=== PATIENT | female | born 1990 | race Caucasian/White ===

== ENCOUNTER 2018-08-09 05:47 | Observation (INO) | payer OTHER ==
[~2018-08-09] VITALS: Ht 165.1 cm; Wt 112.0 kg
[~2018-08-09 05:47] MED LIST: FLUT9.9S NS; MECL25TA3 PO; PRED20TA PO
[2018-08-09] MEDS ORDERED: IPRATRPIUM/ALBUTEROL 0.5/2.5MG 3 ML NEBU. NEB ONE (06:15)
[2018-08-09] MEDS ORDERED: IV NORMAL SALINE 1,000ML 1,000 ML IV ONE (06:15)
--- NOTE | 2018-08-09 06:26 | PHYS DOC ---
Past History Past Medical History: Other Past Surgical History: Appendectomy, , Tubal ligation, Other Smoking: Non-smoker Alcohol Use: None Drug Use: None Adult General Chief Complaint Chief Complaint: COUGH HPI HPI 27-year-old female presenting the emergency department with cough associated with shortness of breath over the past 2 days. She also describes a sharp pain in the chest. It is mild to moderate, nonradiating, intermittent and without alleviating factors. Cough is nonproductive. She denies any fevers at home. She denies unilateral leg swelling hemoptysis personal history of blood clotting disorders or family history of blood clotting disorders. She denies having diabetes high blood pressure high cholesterol family history of heart disease at her age. She sudden cardiac in the family at a young age. Past medical history: Chronic back pain Surgical history appendectomy, , lower back surgery, tubal ligation. Review of systems is negative for neck pain or neck stiffness. She does have a mild headache. She denies any numbness weakness or tingling. Positive for cough. Negative for abdominal pain or vomiting. All other review of systems is negative unless otherwise noted in history of present illness. ED course: 27-year-old female presenting with a nonproductive cough. On arrival , she is tachypneic and tachycardic but well-appearing. She is coughing the examination room with a nonproductive cough during my examination. She has wheezing bilaterally. Abdomen is soft and nontender. Otherwise 2 second cap refill. The remainder the examination is unremarkable. Patient was given IV fluids oral Tylenol for her headache and prednisone her wheezing. Chest x-ray obtained along with EKG and blood work. Chest x-ray shows possible vascular congestion, CT angiogram negative for pulmonary embolism. CT angiogram shows pulmonary edema versus pneumonia. Clinically the patient presents more consistent with pneumonia. EKG obtained and reviewed by myself shows sinus rhythm with a tachycardic rate. Patient has T-wave inversion in lead 3 along with T-wave flattening in aVF. Mild ST depression in the inferior lead. I believe the patient will need to be admitted for serial EKGs and blood testing along with investigation as to the etiology of the patient's pulmonary edema seen on CT scan. I spoke with Dr. Lainez who accepts the patient for admission. IV antibiotics given. IV fluids given. Basic bridge orders placed. Consult cardiology placed. Review of Systems Review of Systems SEE ABOVE. Current Medications Current Medications Current Medications Medications (Trade) Dose Ordered Sig/Tommy Start Time Stop Time Status Last Admin Dose Admin Acetaminophen (Tylenol) 650 mg 1X ONCE 08/09/18 06:30 08/09/18 06:31 UNV Albuterol/ Ipratropium (Duoneb) 3 ml 1X ONCE 08/09/18 06:15 08/09/18 06:18 DC Sodium Chloride 1,000 ml @ 1,000 mls/hr 1X ONCE 08/09/18 06:15 08/09/18 07:14 Allergies Allergies Allergies Coded Allergies Type Severity Reaction Last Updated Verified NSAIDS (Non-Steroidal Anti-Inflamma Adverse Reaction Unknown 07/30/14 Yes Physical Exam Physical Exam Constitutional: Well developed, well nourished, no acute distress, non-toxic appearance. [] HENT: Normocephalic, atraumatic, bilateral external ears normal, oropharynx moist, no oral exudates, nose normal. [] Eyes: PERRLA, EOMI, conjunctiva normal, no discharge. [] Neck: Normal range of motion, no tenderness, supple, no stridor. [] Cardiovascular:tachy rate with regular rhythm, no murmur [] Lungs & Thorax: above Abdomen: Bowel sounds normal, soft, no tenderness, no masses, no pulsatile masses. [] Skin: Warm, dry, no erythema, no rash. [] Back: No tenderness, no CVA tenderness. [] Extremities: No tenderness, no cyanosis, no clubbing, ROM intact, no edema. [] Neurologic: Alert and oriented X 3, normal motor function, normal sensory function, no focal deficits noted. [] Psychologic: Affect normal, judgement normal, mood normal. [] Current Patient Data Vital Signs Vital Signs Date Time Temp Pulse Resp B/P (MAP) Pulse Ox O2 Delivery O2 Flow Rate FiO2 08/09/18 05:51 97.7 112 32 98 Room Air EKG EKG [] Radiology/Procedures Radiology/Procedures [] Course & Med Decision Making Course & Med Decision Making Pertinent Labs and Imaging studies reviewed. (See chart for details) [] Dragon Disclaimer Dragon Disclaimer This electronic medical record was generated, in whole or in part, using a voice recognition dictation system. Departure Departure: Impression: Primary Impression: Cough Additional Impressions: PNA (pneumonia) Abnormal EKG Pulmonary edema Disposition: 09 ADMITTED INPATIENT Admitting Physician: Other (JONES) Condition: STABLE Referrals: PATRICIA MUNGUIA MD (PCP) Problem Qualifiers ADAN VARMA MD Aug 09, 2018 06:26
[2018-08-09] MEDS ORDERED: ACETAMINOPHEN 325 MG TABLET PO ONE (06:30)
[2018-08-09] MEDS ORDERED: predniSONE 10 MG TABLET PO ONE (06:30)
[2018-08-09 06:42] LABS: BASO % 0 % (0-3); EOS # 0.2 x10^3/uL (0.0-0.7); EOS % 2 % (0-3); HEMATOCRIT 38.9 % (36.0-47.0); HEMOGLOBIN 12.8 g/dL (12.0-15.5); LYMPH % 9 % (24-48); MEAN CORPUSCULAR HEMOGLOBIN 26 pg (25-35); MEAN CORPUSCULAR HGB CONC 33 g/dL (31-37); MEAN CORPUSCULAR VOLUME 79 fL (79-100); MONO # 0.8 x10^3/uL (0.0-1.1); MONO % 7 % (0-9); NEUT # 9.2 x10^3uL (1.8-7.7); NEUT % 82 % (31-73); PLATELET COUNT 295 x10^3/uL (140-400); RED BLOOD COUNT 4.96 x10^6/uL (3.50-5.40); RED CELL DISTRIBUTION WIDTH 15.3 % (11.5-14.5); WHITE BLOOD COUNT 11.2 x10^3/uL (4.0-11.0)
--- NOTE | 2018-08-09 06:49 | EKG ---
[address] [address] Test Date: 2018-08-09 Test Time: 06:45:11 Pat Name: MOODY PUGH Department: Room: Gender: F Communications Agent: : 1990 Requested By: ADAN VARMA Order Number: [id number] Reading MD: Julio Cesar Schaffer MD Measurements Intervals [place] Rate: 106 P: 24 RI: 148 QRS: -8 QRSD: 90 T: -5 QT: 330 QTc: 440 Interpretive Statements SINUS TACHYCARDIA NON-SPECIFIC ST/T CHANGES Electronically Signed On 08-10-2018 13:45:45 CDT by Julio Cesar Schaffer MD
[2018-08-09 06:55] LABS: ALBUMIN 2.9 g/dL (3.4-5.0); CALCIUM 8.7 mg/dL (8.5-10.1); CREATININE 0.6 mg/dL (0.6-1.0); DIRECT BILIRUBIN 0.1 mg/dL (0.0-0.2); GFR 118.2; POTASSIUM 3.9 mmol/L (3.5-5.1); TOTAL BILIRUBIN 0.4 mg/dL (0.2-1.0); TOTAL PROTEIN 6.5 g/dL (6.4-8.2)
[2018-08-09] MEDS ORDERED: IOHEXOL 300 MG/ML 75 ML VIAL. IV ONE (07:30)
--- NOTE | 2018-08-09 08:18 | RAD ---
CTA of the chest with contrast, 08/09/2018: HISTORY: Shortness of breath, cough, elevated d-dimer Multidetector CT imaging was performed following an IV bolus injection of iodinated contrast material. Multiplanar reconstructions were produced including coronal MIP images No filling defects are seen in the central pulmonary arteries to suggest pulmonary emboli. The heart is mildly enlarged. The thoracic aorta is of normal caliber. There is minimal right paratracheal and subcarinal adenopathy. There is moderate interlobular septal thickening in both lungs. There are scattered hazy groundglass opacities, probably accentuated by the expiratory technique. No significant pleural fluid is evident. The upper ends of spinal fixation rods and associated screws are noted in the lower thoracic and upper lumbar spine. IMPRESSION: 1. No CT evidence of central pulmonary emboli. 2. Mild cardiomegaly. 3. Interlobular septal thickening and mild patchy groundglass opacities in both lungs suggesting mild pulmonary edema. Pneumonia is less likely. 4. Minimal mediastinal adenopathy. PQRS Compliance Statement: One or more of the following individualized dose reduction techniques were utilized for this examination: 1. Automated exposure control 2. Adjustment of the mA and/or kV according to patient size 3. Use of iterative reconstruction technique Electronically signed by: Clement Langley MD (08/09/2018 8:14 AM) [facility]
--- NOTE | 2018-08-09 08:20 | RAD ---
Portable chest, 08/09/2018: HISTORY: Cough The heart size is within normal limits for the portable technique. The pulmonary vascularity are at the upper limits of normal. No pulmonary consolidation is seen. There is no evidence of pleural fluid. Surgical rods and screws are present at the thoracolumbar spine level. IMPRESSION: Borderline vascular congestion. Electronically signed by: Clement Langley MD (08/09/2018 8:17 AM) [facility]
[2018-08-09] MEDS ORDERED: IV NORMAL SALINE 1,000ML 1,000 ML IV SCH (08:45)
[2018-08-09] MEDS ORDERED: AZITHROMYCIN 250 MG TABLET. PO ONE (09:00)
[2018-08-09] MEDS ORDERED: cefTRIAXone IV Push 1 GM VIAL. IVP ONE (09:00)
--- NOTE | 2018-08-09 10:11 | EKG ---
[address] [address] Test Date: 2018-08-09 Test Time: 09:01:07 Pat Name: MOODY PUGH Department: Room: Gender: F Scullion Chief: : 1990 Requested By: ADAN VARMA Order Number: [id number] Reading MD: Julio Cesar Schaffer MD Measurements Intervals [place] Rate: 105 P: 28 DC: 152 QRS: -8 QRSD: 92 T: 2 QT: 344 QTc: 459 Interpretive Statements SINUS TACHYCARDIA Electronically Signed On 08-10-2018 13:46:30 CDT by Julio Cesar Schaffer MD
[2018-08-09] MEDS: ONDANSETRON PF 4 MG/2 ML VIAL. IV PRN ×2 (10:12→10:18)
--- NOTE | 2018-08-09 11:28 | NUR ---
NSG NOTE; ADMISSION ADMIT TO ROOM 113 AT 1125 FROM ED VIA CART ACCOMP BY EMS PERSONNEL AND FIANCE. C/O COUGH AND SOA X 2 DAYS
[2018-08-09 11:44] VITALS: BP 121/78
[2018-08-09] MEDS ORDERED: ESCITALOPRAM OX10 MG PO (11:49)
--- NOTE | 2018-08-09 12:25 | NUR ---
NSG NOTE; DR WONG CONSULT CALLED TO [place] AT OFFICE [employer]IOR [employer]OPER LINE AT [id number]
[2018-08-09 15:31] VITALS: BP 120/62
--- NOTE | 2018-08-09 15:46 | PDOC1 ---
History of Present Illness History of Present Illness 27-year-old female presented to the emergency department with cough associated with shortness of breath over the past 2 days. She also described a sharp pain in the chest. It was mild to moderate, nonradiating, intermittent and without alleviating factors. Cough nonproductive. She denied any fevers at home. She denied unilateral leg swelling hemoptysis personal history of blood clotting disorders or family history of blood clotting disorders. She denied having diabetes high blood pressure high cholesterol family history of heart disease at her age. She denied sudden cardiac in the family at a young age. On arrival, she was tachypneic and tachycardic but well-appearing. She had nonproductive cough. She had wheezing bilaterally. Patient was given IV fluids oral Tylenol for her headache and prednisone her wheezing. Chest x-ray obtained along with EKG and blood work. Chest x-ray showed possible vascular congestion, CT angiogram negative for pulmonary embolism. CT angiogram shows pulmonary edema versus pneumonia. Clinically the patient presented more consistent with pneumonia. EKG reportedly sinus rhythm with a tachycardic rate, T-wave inversion in lead 3 along with T-wave flattening in aVF. Mild ST depression in the inferior lead. Patient was admitted for blood testing along with investigation as to the etiology of the patient's pulmonary edema seen on CT scan. Cardiology was consulted, echocardiogram was unremarkable and the patient' s pain symptoms determined to be pleuritic in nature no further cardiac workup indicated. Patient to be discharged home with oral antibiotics and close PCP follow-up. Chief Complaint: COUGH Allergies: Coded Allergies: NSAIDS (Non-Steroidal Anti-Inflamma (Verified Adverse Reaction, Unknown, ) black tarry stools and upset stomache Past Medical History Musculoskeletal: low back pain (Chronic) Past Surgical History: Appendectomy, , Other (back, tubal ligation) Family History: CAD Past Social History Smoke: No Alcohol: none Drugs: None Lives: with Family Review of Systems Review Of Systems Fourteen system , review of systems has been reviewed. See HPI for pertinent positives and negative responses, other valencia all other systems are negative, non pertinent or non contributory Constitutional: No: Fever, Chills, Sweats Eyes: No: Blurry vision, Eye Pain ENT: No: Ear discharge, Mouth pain Respiratory: YES: Cough, Pleuritic Pain; No: Orthopnea, SOB with excertion Cardiovascular: yes: Chest Pain; No: Palpitations, Paroxysmal Noc. Dyspnea, Edema Gastrointestinal: No: Nausea, Vomiting, Constipation Musculoskeletal: No: Gait Disturbance, Joint Swelling SKIN: YES: Warm, Dry Neurological: No: Behavorial Changes, Headaches, Memory Loss Medications Current Medications Sodium Chloride 1,000 ml @ 1,000 mls/hr 1X ONCE IV Last administered on at 06:36; Start 08/09/18 at 06:15; Stop 08/09/18 at 07:14; Status DC Albuterol/ Ipratropium (Duoneb) 3 ml 1X ONCE NEB Last administered on at 06:38; Start 08/09/18 at 06:15; Stop 08/09/18 at 06:18; Status DC Acetaminophen (Tylenol) 650 mg 1X ONCE PO Last administered on 08/09/18at 06:38 ; Start 08/09/18 at 06:30; Stop 08/09/18 at 06:31; Status DC Prednisone (Prednisone) 50 mg 1X ONCE PO Last administered on 08/09/18at 06:39 ; Start 08/09/18 at 06:30; Stop 08/09/18 at 06:31; Status DC Iohexol (Omnipaque 300 Mg/ml) 75 ml 1X ONCE IV Last administered on 08/09/18at 07:55; Start 08/09/18 at 07:30; Stop 08/09/18 at 07:37; Status DC Ondansetron HCl (Zofran) 4 mg PRN Q4HRS PRN IV NAUSEA/VOMITING Last administered on 08/09/18at 10:18; Start 08/09/18 at 08:45; Stop 08/10/18 at 08:44 Sodium Chloride 1,000 ml @ 100 mls/hr Q10H IV Last administered on 08/09/18at 10:11; Start 08/09/18 at 08:45; Stop 08/10/18 at 08:44 Azithromycin (Zithromax) 500 mg 1X ONCE PO Last administered on 08/09/18at 10: 12; Start 08/09/18 at 09:00; Stop 08/09/18 at 09:01; Status DC Ceftriaxone Sodium 1 gm/ Sodium Chloride 50 ml @ 100 mls/hr 1X ONCE IV ; Start 08/09/18 at 09:00; Stop 08/09/18 at 09:00; Status DC Ceftriaxone Sodium (Rocephin) 1 gm 1X ONCE IVP Last administered on 08/09/18at 10:10; Start 08/09/18 at 09:00; Stop 08/09/18 at 09:01; Status DC Active Scripts Active Reported Escitalopram Oxalate 10 Mg Tablet 2 Tab PO DAILY Exam Vital Signs Vital Signs Date Time Temp Pulse Resp B/P (MAP) Pulse Ox O2 Delivery O2 Flow Rate FiO2 08/09/18 15:31 98.9 107 20 120/62 (81) 95 Room Air General Appearance: Alert, Oriented X3, No acute distress HEENT: Atraumatic, PERRLA, EOMI, Mucous membr. moist/pink Respiratory: Clear to auscultation, Normal air movement Heart: Normal S1, Normal S2, No murmurs Abdominal: Normal bowel sounds, Soft Extremities: No clubbing, No cyanosis Skin: No rashes, No breakdown Neuro: Normal gait, Normal speech, Normal tone, Sensation intact, Cranial nerves 3-12 NL Psych/Mental Status: Mental status NL, Mood NL COURSE Allergies Coded Allergies Type Severity Reaction Last Updated Verified NSAIDS (Non-Steroidal Anti-Inflamma Adverse Reaction Unknown 08/09/18 Yes Laboratory Tests Test 08/09/18 06:25 White Blood Count 11.2 x10^3/uL (4.0-11.0) Red Blood Count 4.96 x10^6/uL (3.50-5.40) Hemoglobin 12.8 g/dL (12.0-15.5) Hematocrit 38.9 % (36.0-47.0) Mean Corpuscular Volume 79 fL (79-100) Mean Corpuscular Hemoglobin 26 pg (25-35) Mean Corpuscular Hemoglobin Concent 33 g/dL (31-37) Red Cell Distribution Width 15.3 % (11.5-14.5) Platelet Count 295 x10^3/uL (140-400) Neutrophils (%) (Auto) 82 % (31-73) Lymphocytes (%) (Auto) 9 % (24-48) Monocytes (%) (Auto) 7 % (0-9) Eosinophils (%) (Auto) 2 % (0-3) Basophils (%) (Auto) 0 % (0-3) Neutrophils # (Auto) 9.2 x10^3uL (1.8-7.7) Lymphocytes # (Auto) 1.0 x10^3/uL (1.0-4.8) Monocytes # (Auto) 0.8 x10^3/uL (0.0-1.1) Eosinophils # (Auto) 0.2 x10^3/uL (0.0-0.7) Basophils # (Auto) 0.0 x10^3/uL (0.0-0.2) D-Dimer (Gayathri) 2.22 mg/L (0.00-0.50) Sodium Level 137 mmol/L (136-145) Potassium Level 3.9 mmol/L (3.5-5.1) Chloride Level 105 mmol/L (98-107) Carbon Dioxide Level 25 mmol/L (21-32) Anion Gap 7 (6-14) Blood Urea Nitrogen 7 mg/dL (7-20) Creatinine 0.6 mg/dL (0.6-1.0) Estimated GFR (Cockcroft-Gault) 118.2 Glucose Level 91 mg/dL (70-99) Calcium Level 8.7 mg/dL (8.5-10.1) Total Bilirubin 0.4 mg/dL (0.2-1.0) Direct Bilirubin 0.1 mg/dL (0.0-0.2) Aspartate Amino Transf (AST/SGOT) 10 U/L (15-37) Alanine Aminotransferase (ALT/SGPT) 22 U/L (14-59) Alkaline Phosphatase 96 U/L (46-116) Troponin I Quantitative < 0.017 ng/mL (0-0.055) Total Protein 6.5 g/dL (6.4-8.2) Albumin 2.9 g/dL (3.4-5.0) Lipase 94 U/L (73-393) Current Medications Medications (Trade) Dose Ordered Sig/Tommy Route PRN Reason Start Time Stop Time Status Last Admin Dose Admin Sodium Chloride 1,000 ml @ 1,000 mls/hr 1X ONCE IV 08/09/18 06:15 08/09/18 07:14 DC 08/09/18 06:36 Albuterol/ Ipratropium (Duoneb) 3 ml 1X ONCE NEB 08/09/18 06:15 08/09/18 06:18 DC 9/10/18 06:38 Acetaminophen (Tylenol) 650 mg 1X ONCE PO 08/09/18 06:30 08/09/18 06:31 DC 08/09/18 06:38 Prednisone (Prednisone) 50 mg 1X ONCE PO 08/09/18 06:30 08/09/18 06:31 DC 08/09/18 06:39 Iohexol (Omnipaque 300 Mg/ml) 75 ml 1X ONCE IV 08/09/18 07:30 08/09/18 07:37 DC 08/09/18 07:55 Ondansetron HCl (Zofran) 4 mg PRN Q4HRS PRN IV NAUSEA/VOMITING 08/09/18 08:45 08/10/18 08:44 08/09/18 10:18 Sodium Chloride 1,000 ml @ 100 mls/hr Q10H IV 08/09/18 08:45 08/10/18 08:44 08/09/18 10:11 Azithromycin (Zithromax) 500 mg 1X ONCE PO 08/09/18 09:00 08/09/18 09:01 DC 08/09/18 10:12 Ceftriaxone Sodium 1 gm/ Sodium Chloride 50 ml @ 100 mls/hr 1X ONCE IV 08/09/18 09:00 08/09/18 09:00 DC Ceftriaxone Sodium (Rocephin) 1 gm 1X ONCE IVP 08/09/18 09:00 08/09/18 09:01 DC 08/09/18 10:10 Orders Procedure Category Date Status Time Basic Metabolic Panel LAB 08/09/18 Complete 06:03 Cbc W Autodiff LAB 08/09/18 Complete 06:03 Hepatic Panel LAB 08/09/18 Complete 06:03 Lipase LAB 08/09/18 Complete 06:03 Troponin I LAB 08/09/18 Complete 06:03 Pulse Oximetry: MANDY 08/09/18 In Process Standing Order 06:14 Bp Monitoring ER 08/09/18 Transmitted 06:03 Saline Lock ER 08/09/18 Transmitted 06:03 Vital Signs ER 08/09/18 Transmitted 06:03 Chest Ap Only RAD 08/09/18 Resulted 06:03 Iv Normal Saline PHA 08/09/18 Complete 1,000ml (Iv Sodium 06:15 Ipratrpium/Albuterol PHA 08/09/18 Complete 0.5/2.5mg (Duoneb) 06:15 Airway Inhalation RT 08/09/18 Complete Treatment 06:03 12 Lead Ekg EKG 08/09/18 Complete 06:18 Acetaminophen PHA 08/09/18 Complete (Tylenol) 06:30 D-Dimer LAB 08/09/18 Complete 06:19 Prednisone PHA 08/09/18 Complete (Prednisone) 06:[address] 08/09/18 Resulted 07:06 Iohexol 300 Mg/Ml PHA 08/09/18 Complete (Omnipaque 300 Mg/Ml) 07:30 Ed Bridge Order ADT 08/09/18 Transmitted 08:38 Code Status CODE 08/09/18 Transmitted 08:38 Vital Signs, Per MANDY 08/09/18 In Process Protocol 08:38 Oxygen MANDY 08/09/18 In Process 08:38 Advance Diet As MANDY 08/09/18 In Process Tolerated 08:38 Up In Chair With MANDY 08/09/18 In Process Assistance 08:38 Fall Precautions MANDY 08/09/18 In Process 08:38 Cbc W Autodiff LAB 08/10/18 Verified 06:00 Basic Metabolic Panel LAB 08/10/18 Verified 06:00 Ondansetron Pf PHA 08/09/18 In Process (Zofran) 08:45 Iv Normal Saline PHA 08/09/18 In Process 1,000ml (Iv Sodium 08:45 Troponin I LAB 08/09/18 Logged 18:00 Troponin I LAB 08/10/18 Verified 00:00 Troponin I LAB 08/10/18 Verified 06:00 Azithromycin PHA 08/09/18 Complete (Zithromax) 09:00 Ceftriaxone Sodium PHA 08/09/18 Complete (Rocephin) 09:00 Consult Physician By CONS 08/09/18 Transmitted Name 08:55 Ceftriaxone Iv Push PHA 08/09/18 Complete (Rocephin) 09:00 12 Lead Ekg EKG 08/09/18 Complete 09:00 Admit Orders ADT 08/09/18 Transmitted Echocardiogram ECHO 08/09/18 Logged 13:13 Vital Signs Date Time Temp Pulse Resp B/P (MAP) Pulse Ox O2 Delivery O2 Flow Rate FiO2 08/09/18 15:31 98.9 107 20 120/62 (81) 95 Room Air ALFONZO GOLDMAN DO Aug 09, 2018 15:46
--- NOTE | 2018-08-09 16:27 | PDOC2 ---
CONSULT Date of Admission DATE: 08/09/18 TIME: 16:27 Reason for Consult: Chest pain Referring Physician: Dr. Lainez Chief Complaint Chest pain Source: Chart review, Patient Problem List Problems Medical Problems: (1) Abnormal EKG Status: Acute (2) Cough Status: Acute (3) PNA (pneumonia) Status: Acute (4) Pulmonary edema Status: Acute History of Present Illness 27-year-old female without any previous cardiac history presented with cough, shortness of breath and sharp retrosternal chest pain for the past 2-3 days. She denied any exertional component to the chest pain. She also denied any orthopnea/PND, palpitations or syncope. Past Medical History Chronic back pain Past Surgical History Appendectomy Tubal ligation section Back surgery Family History Positive for premature coronary artery disease Smoke: No ALCOHOL: none Drugs: None Current Medications Current Medications Sodium Chloride 1,000 ml @ 1,000 mls/hr 1X ONCE IV Last administered on at 06:36; Start 08/09/18 at 06:15; Stop 08/09/18 at 07:14; Status DC Albuterol/ Ipratropium (Duoneb) 3 ml 1X ONCE NEB Last administered on at 06:38; Start 08/09/18 at 06:15; Stop 08/09/18 at 06:18; Status DC Acetaminophen (Tylenol) 650 mg 1X ONCE PO Last administered on 08/09/18at 06:38 ; Start 08/09/18 at 06:30; Stop 08/09/18 at 06:31; Status DC Prednisone (Prednisone) 50 mg 1X ONCE PO Last administered on 08/09/18at 06:39 ; Start 08/09/18 at 06:30; Stop 08/09/18 at 06:31; Status DC Iohexol (Omnipaque 300 Mg/ml) 75 ml 1X ONCE IV Last administered on 08/09/18at 07:55; Start 08/09/18 at 07:30; Stop 08/09/18 at 07:37; Status DC Ondansetron HCl (Zofran) 4 mg PRN Q4HRS PRN IV NAUSEA/VOMITING Last administered on 08/09/18at 10:18; Start 08/09/18 at 08:45; Stop 08/10/18 at 08:44 Sodium Chloride 1,000 ml @ 100 mls/hr Q10H IV Last administered on 08/09/18at 10:11; Start 08/09/18 at 08:45; Stop 08/10/18 at 08:44 Azithromycin (Zithromax) 500 mg 1X ONCE PO Last administered on 08/09/18at 10: 12; Start 08/09/18 at 09:00; Stop 08/09/18 at 09:01; Status DC Ceftriaxone Sodium 1 gm/ Sodium Chloride 50 ml @ 100 mls/hr 1X ONCE IV ; Start 08/09/18 at 09:00; Stop 08/09/18 at 09:00; Status DC Ceftriaxone Sodium (Rocephin) 1 gm 1X ONCE IVP Last administered on 08/09/18at 10:10; Start 08/09/18 at 09:00; Stop 08/09/18 at 09:01; Status DC Active Scripts Active Reported Escitalopram Oxalate 10 Mg Tablet 2 Tab PO DAILY Allergies: Coded Allergies: NSAIDS (Non-Steroidal Anti-Inflamma (Verified Adverse Reaction, Unknown, ) black tarry stools and upset stomache PSYCHOLOGICAL ROS: No: Hallucinations Eyes: No: Loss of vision HEENT: No: Epistaxis Respiratory: YES: Cough, Shortness of breath Cardiovascular: yes: Chest Pain Gastrointestinal: No: Vomiting, Diarrhea Neurological: No: Seizures Skin: No: Rash General: Alert, Oriented X3 HEENT: Atraumatic, PERRLA Lungs: Clear to auscultation Heart: Regular rate Abdomen: Soft, No tenderness Extremities: No edema Psych/Mental Status: Mood NL VITALS Vital Signs Date Time Temp Pulse Resp B/P (MAP) Pulse Ox O2 Delivery O2 Flow Rate FiO2 08/09/18 15:31 98.9 107 20 120/62 (81) 95 Room Air Labs Laboratory Tests Test 08/09/18 06:25 08/09/18 15:52 White Blood Count 11.2 x10^3/uL (4.0-11.0) Red Blood Count 4.96 x10^6/uL (3.50-5.40) Hemoglobin 12.8 g/dL (12.0-15.5) Hematocrit 38.9 % (36.0-47.0) Mean Corpuscular Volume 79 fL (79-100) Mean Corpuscular Hemoglobin 26 pg (25-35) Mean Corpuscular Hemoglobin Concent 33 g/dL (31-37) Red Cell Distribution Width 15.3 % (11.5-14.5) Platelet Count 295 x10^3/uL (140-400) Neutrophils (%) (Auto) 82 % (31-73) Lymphocytes (%) (Auto) 9 % (24-48) Monocytes (%) (Auto) 7 % (0-9) Eosinophils (%) (Auto) 2 % (0-3) Basophils (%) (Auto) 0 % (0-3) Neutrophils # (Auto) 9.2 x10^3uL (1.8-7.7) Lymphocytes # (Auto) 1.0 x10^3/uL (1.0-4.8) Monocytes # (Auto) 0.8 x10^3/uL (0.0-1.1) Eosinophils # (Auto) 0.2 x10^3/uL (0.0-0.7) Basophils # (Auto) 0.0 x10^3/uL (0.0-0.2) D-Dimer (Gayathri) 2.22 mg/L (0.00-0.50) Sodium Level 137 mmol/L (136-145) Potassium Level 3.9 mmol/L (3.5-5.1) Chloride Level 105 mmol/L (98-107) Carbon Dioxide Level 25 mmol/L (21-32) Anion Gap 7 (6-14) Blood Urea Nitrogen 7 mg/dL (7-20) Creatinine 0.6 mg/dL (0.6-1.0) Estimated GFR (Cockcroft-Gault) 118.2 Glucose Level 91 mg/dL (70-99) Calcium Level 8.7 mg/dL (8.5-10.1) Total Bilirubin 0.4 mg/dL (0.2-1.0) Direct Bilirubin 0.1 mg/dL (0.0-0.2) Aspartate Amino Transf (AST/SGOT) 10 U/L (15-37) Alanine Aminotransferase (ALT/SGPT) 22 U/L (14-59) Alkaline Phosphatase 96 U/L (46-116) Troponin I Quantitative < 0.017 ng/mL (0-0.055) < 0.017 ng/mL (0-0.055) Total Protein 6.5 g/dL (6.4-8.2) Albumin 2.9 g/dL (3.4-5.0) Lipase 94 U/L (73-393) Assessment/Plan 1. Chest pain with atypical features appears to be pleuritic in nature. Myocardial infarction has been ruled out. CT chest did not show any acute pulmonary embolism. 2-D echo showed normal LV function without any regional wall motion abnormalities. No further cardiac workup is indicated at this time. 2. Pneumonia: Treat per IM Thank you for your consultation KELSY DASH MD Aug 09, 2018 16:27
--- NOTE | 2018-08-09 16:45 | CARD ---
MR#: [id number] Date of Study: 08/09/2018 Ordering Physician: KELSY DASH, Referring Physician: ALFONZO GOLDMAN, Tech: Lisa Fernandes RDCS APPROVED REPORT EXAM: Two-dimensional and M-mode echocardiogram with Doppler and color Doppler. Other Information Quality : Good INDICATION Abnormal ECG 2D DIMENSIONS RVDd2.4 (2.9-3.5cm)Left Atrium(2D)3.7 (1.6-4.0cm) IVSd1.0 (0.7-1.1cm)Aortic Root(2D)2.6 (2.0-3.7cm) LVDd4.9 (3.9-5.9cm)LVOT Diameter2.1 (1.8-2.4cm) PWd1.0 (0.7-1.1cm)LVDs3.3 (2.5-4.0cm) FS (%) 33.0 %SV68.2 ml LVEF(%)61.4 (>50%) Aortic Valve AoV Peak Gianni.164.6cm/Frances Peak GR.10.8mmHg LVOT Peak Gianni.101.0cm/sAVA (VMAX)2.15cm2 ANTONETTE (VTI)2.20cm2 Mitral Valve MV E Ejyjrkaj11.7cm/sMV DECEL [id number] MV A Jiyplnmf33.4cm/sE/A Ratio0.9 Tricuspid Valve TR P. [id number]/sRAP [id number] TR Peak Gr.[id number] Pulmonary Vein S1 Pyftdsfq86.0cm/sD2 Hvazawnr72.0cm/s LEFT VENTRICLE The left ventricle is normal size. There is normal left ventricular wall thickness. The left ventricu lar systolic function is normal. The Ejection Fraction is 55-60%. There is normal LV segmental wall m otion. The left ventricular diastolic function and filling is normal for age. RIGHT VENTRICLE The right ventricle is normal size. The right ventricular systolic function is normal. ATRIA The left atrium size is normal. The right atrium size is normal. The interatrial septum is intact wit h no evidence for an atrial septal defect or patent foramen ovale as noted on 2-D or Doppler imaging. AORTIC VALVE The aortic valve is normal in structure and function. Doppler and Color Flow revealed no significant aortic regurgitation. There is no significant aortic valvular stenosis. MITRAL VALVE The mitral valve is normal in structure and function. There is no evidence of mitral valve prolapse. There is no mitral valve stenosis. Doppler and Color Flow revealed no mitral valve regurgitation note d. TRICUSPID VALVE The tricuspid valve is normal in structure and function. Doppler and Color Flow revealed trace tricus pid regurgitation. The PA pressure was estimated at 32 mmHg. There is no tricuspid valve stenosis. PULMONIC VALVE The pulmonary valve is normal in structure and function. Doppler and Color Flow revealed no pulmonic valvular regurgitation. There is no pulmonic valvular stenosis. GREAT VESSELS The aortic root is normal in size. The ascending aorta is normal in size. The IVC is normal in size a nd collapses >50% with inspiration. PERICARDIAL EFFUSION There is no evidence of significant pericardial effusion. Critical Notification Critical Value: No <Conclusion> The left ventricular systolic function is normal. The Ejection Fraction is 55-60%. There is normal LV segmental wall motion. Doppler and Color Flow revealed trace tricuspid regurgitation. The PA pressure was estimated at 32 mmHg. There is no evidence of significant pericardial effusion. Signed by : Kelsy Dash, Electronically Approved : 08/09/2018 16:44:56
--- NOTE | 2018-08-09 17:22 | NUR ---
NSG NOTE; DISCHARGE VERBAL AND WRITTEN DISCHARGE INSTRUCTIONS GIVEN TO PT AND SO WITH VERBAL UNDERSTANDING. WRITTEN RX GIVEN TO PT DISCHARGE TO HOME AT 1720 VIA AMB ACCOMP BY SO
== END 2018-08-09 17:20 | disposition home or self-care (01) ==
LOC: ER 05:47 → 1 SOUTH 08:57 → INTOOBSV 08:57
PROVIDERS: ADMIT Neuromusculoskeletal Medicine & OMM; ATTEND Neuromusculoskeletal Medicine & OMM
DX: J18.9 Pneumonia, unspecified organism (principal); R07.89 Other chest pain; Z82.49 Family history of ischemic heart disease and other diseases of the circulatory system; Z90.49 Acquired absence of other specified parts of digestive tract
CPT/HCPCS: 36415; 71045; 71275; 80048; 80076; 83690; 84484; 85025; 85379; 93005; 93306; 94640; 96374; 96375; 96376; 99285; G0378; J0456; J0696; J2405; J7512; J7620; Q9967; G0379; J7030

== ENCOUNTER → 2021-03-19 | Outpatient (CLI) | payer SELFPAY ==
[~2021-03-19] MED LIST changes: +ESCITALOPRAM OX10 MG PO; +MECL-75 PO; -MECL25TA3 PO
== END ==
LOC: LAB 13:49
PROVIDERS: ATTEND Nurse Practitioner Women's Health
DX: N64.52 Nipple discharge (principal)
CPT/HCPCS: 36415; 84146; 84443